=== PATIENT | female | born 1950 | race Caucasian/White ===

== ENCOUNTER 2024-05-13 00:41 | Emergency (ER) | payer MEDICARE, OTHER ==
[2024-05-13] MEDS ORDERED: HYDROcodone/Acetaminophen 10/325 mg Tablet ONE (01:25)
== END 2024-05-13 02:22 | disposition home or self-care (01) ==
LOC: ERS 00:41
DX: S22.42XA Multiple fractures of ribs, left side, initial encounter for closed fracture (principal); W22.8XXA Striking against or struck by other objects, initial encounter
CPT/HCPCS: 71250

== ENCOUNTER 2024-07-01 15:54 | Emergency (ER) | payer MEDICARE ==
[2024-07-01 16:32] LABS: #Basophils 0.05 10x3/uL (0.0-0.2); %Basophils 0.7 % (0.0-1.0); %Eosinophils 1.5 % (0.0-10.0); %Lymphocytes 20.8 % (21.0-51.0); %Monocytes 7.4 % (0.0-10.0); %Neutrophils 69.3 % (42.0-75.0); Hematocrit 39.8 % (36.0-47.0); Hemoglobin 13.2 g/dL (12.0-16.0); Mean Corpuscular HGB CONC 33.2 g/dL (32.0-36.0); Mean Corpuscular Hemoglobin 31.4 pg (27.0-31.0); Mean Corpuscular Volume 94.8 fL (78.0-98.0); Mean Platelet Volume 8.7 fL (7.4-10.4); Platelet Count 216 10x3/uL (130-400); RBC Distribution Width 11.9 % (11.5-14.5)
[2024-07-01 16:50] LABS: ALT (SGPT) 14 U/L (8-55); AST (SGOT) 16 U/L (5-34); Albumin 3.9 g/dL (3.4-4.8); Alkaline Phosphatase 68 U/L (40-110); Anion Gap 14 mmol/L (10-20); BUN (Urea Nitrogen) 14 mg/dL (9.8-20.1); Bilirubin, Total 0.5 mg/dL (0.2-1.2); Calc. Creatinine Clearance 0 mL/min (70-130); Calcium 8.9 mg/dL (7.8-10.44); Carbon Dioxide 26 mmol/L (23-31); Chloride 104 mmol/L (98-107); Estimated GFR 72; Globulin 2.8 g/dL (2.4-3.5); Glucose 95 mg/dL (83-110); Potassium 3.7 mmol/L (3.5-5.1); Protein, Total 6.7 g/dL (5.8-8.1); Sodium 140 mmol/L (136-145)
[2024-07-01 16:54] LABS: Troponin I Less than 0.010 ng/mL (< 0.028)
[2024-07-01] MEDS ORDERED: Ketorolac Tromethamine 30 MG (1 mL) VIAL ONE (18:57)
[2024-07-01] MEDS ORDERED: Lidocaine 4% Patch ONE (18:58)
== END 2024-07-01 19:48 | disposition home or self-care (01) ==
LOC: ERS 15:54
DX: S32.10XA Unspecified fracture of sacrum, initial encounter for closed fracture (principal); S22.42XD Multiple fractures of ribs, left side, subsequent encounter for fracture with routine healing; R29.700 NIHSS score 0; W18.30XA Fall on same level, unspecified, initial encounter; Y93.89 Activity, other specified
CPT/HCPCS: 71045; 71250; 74177; 80053; 84484; 85025; 93005; J1885; 36415; 96372

== ENCOUNTER 2024-07-13 14:43 | Emergency (ER) | payer MEDICARE ==
[2024-07-13 18:19] LABS: #Basophils 0.06 10x3/uL (0.0-0.2); %Basophils 0.6 % (0.0-1.0); %Eosinophils 0.9 % (0.0-10.0); %Lymphocytes 19.5 % (21.0-51.0); %Monocytes 6.9 % (0.0-10.0); %Neutrophils 71.7 % (42.0-75.0); Hematocrit 38.5 % (36.0-47.0); Mean Corpuscular HGB CONC 33.8 g/dL (32.0-36.0); Mean Corpuscular Hemoglobin 31.6 pg (27.0-31.0); Mean Corpuscular Volume 93.4 fL (78.0-98.0); Mean Platelet Volume 8.6 fL (7.4-10.4); Platelet Count 251 10x3/uL (130-400); RBC Distribution Width 12.5 % (11.5-14.5); Red Blood Cell (RBC) Count 4.12 mill/uL (4.20-5.40)
[2024-07-13 18:33] LABS: PTT 29.3 sec (22.9-36.1); Prothrombin Time 12.7 sec (12.0-14.7)
[2024-07-13] MEDS ORDERED: fentaNYL 50 mcg/mL 1 mL Vial ONE (19:26)
[2024-07-13] MEDS ORDERED: Ondansetron PF 4 MG/2 ML Vial ONE (19:28)
[2024-07-13 19:30] LABS: ALT (SGPT) 18 U/L (8-55); AST (SGOT) 20 U/L (5-34); Albumin 3.8 g/dL (3.4-4.8); Alkaline Phosphatase 116 U/L (40-110); Anion Gap 15 mmol/L (10-20); BUN (Urea Nitrogen) 13 mg/dL (9.8-20.1); Bilirubin, Total 0.5 mg/dL (0.2-1.2); Calc. Creatinine Clearance 0 mL/min (70-130); Calcium 9.1 mg/dL (7.8-10.44); Carbon Dioxide 24 mmol/L (23-31); Chloride 105 mmol/L (98-107); Estimated GFR 92; Glucose 75 mg/dL (83-110); Potassium 3.9 mmol/L (3.5-5.1); Protein, Total 6.8 g/dL (5.8-8.1); Sodium 140 mmol/L (136-145)
== END 2024-07-13 20:38 | disposition home or self-care (01) ==
LOC: ERS 14:43
DX: I82.441 Acute embolism and thrombosis of right tibial vein (principal)
CPT/HCPCS: 71275; 80053; 85025; 85610; 85730; 93971; 99284; J2405; J3010

== ENCOUNTER 2024-07-14 14:29 | Emergency (ER) | payer MEDICARE ==
[2024-07-14] MEDS ORDERED: Ketorolac Tromethamine 30 MG (1 mL) VIAL ONE (15:30)
[2024-07-14] MEDS ORDERED: HYDROcodone/Acetaminophen 5/325 mg Tablet ONE (15:30)
[2024-07-14] MEDS ORDERED: Ondansetron ODT 4 MG TAB ONE (16:24)
== END 2024-07-14 16:21 | disposition home or self-care (01) ==
LOC: ERS 14:29
DX: M25.551 Pain in right hip (principal); W18.30XA Fall on same level, unspecified, initial encounter
CPT/HCPCS: 72192; 96372; 99284; J1885; Q0162

== ENCOUNTER 2024-07-19 14:30 | Emergency (ER) | payer MEDICARE ==
[2024-07-19] MEDS ORDERED: HYDROcodone/Acetaminophen 5/325 mg Tablet ONE (15:54)
[2024-07-19] MEDS ORDERED: Ketorolac Tromethamine 30 MG (1 mL) VIAL ONE (16:39)
== END 2024-07-19 17:17 | disposition home or self-care (01) ==
LOC: ERS 14:30
DX: M53.3 Sacrococcygeal disorders, not elsewhere classified (principal)
CPT/HCPCS: 96372; 99282; J1885

== ENCOUNTER 2024-07-21 17:08 | Inpatient (IN) | payer MEDICARE ==
[2024-07-21 19:23] LABS: #Basophils 0.06 10x3/uL (0.0-0.2); %Basophils 0.6 % (0.0-1.0); %Eosinophils 0.8 % (0.0-10.0); %Monocytes 6.3 % (0.0-10.0); %Neutrophils 71.7 % (42.0-75.0); Hematocrit 40.7 % (36.0-47.0); Hemoglobin 13.6 g/dL (12.0-16.0); Mean Corpuscular HGB CONC 33.4 g/dL (32.0-36.0); Mean Corpuscular Hemoglobin 31.9 pg (27.0-31.0); Mean Corpuscular Volume 95.3 fL (78.0-98.0); Mean Platelet Volume 8.5 fL (7.4-10.4); Platelet Count 310 10x3/uL (130-400); RBC Distribution Width 13.2 % (11.5-14.5); Red Blood Cell (RBC) Count 4.27 mill/uL (4.20-5.40)
[2024-07-21] MEDS: fentaNYL 12 mcg Patch TD SCH (19:42)
[2024-07-21 19:50] LABS: ALT (SGPT) 19 U/L (8-55); AST (SGOT) 21 U/L (5-34); Albumin 3.9 g/dL (3.4-4.8); Alkaline Phosphatase 170 U/L (40-110); Anion Gap 17 mmol/L (10-20); BUN (Urea Nitrogen) 10 mg/dL (9.8-20.1); Bilirubin, Total 0.6 mg/dL (0.2-1.2); Calc. Creatinine Clearance 0 mL/min (70-130); Calcium 9.2 mg/dL (7.8-10.44); Carbon Dioxide 23 mmol/L (23-31); Chloride 104 mmol/L (98-107); Estimated GFR 94; Globulin 3.2 g/dL (2.4-3.5); Glucose 86 mg/dL (83-110); Potassium 3.5 mmol/L (3.5-5.1); Protein, Total 7.1 g/dL (5.8-8.1); Sodium 140 mmol/L (136-145)
[2024-07-21] MEDS ORDERED: Morphine 4 MG/ML VIAL ONE ×2 (20:35→21:19)
[2024-07-21 20:51] LABS: Bacteria/HPF None Seen HPF (None Seen); Bilirubin Negative (Negative); Blood, Urine Trace (Negative); CAUTI Indications for Culture Pelvic or flank pain; Clarity Clear (Clear); Glucose, Urine (Dipstick) Normal (Negative); Ketone, Urine 20 mg/dL (Negative); Leukocyte Negative Leu/uL (Negative); Nitrite Negative (Negative); Protein, Urine (Dipstick) Negative (Neg-Trace); Specific Gravity, Urine 1.019 (1.002-1.036); Squamous Epithelial None Seen HPF (0-3); WBC/HPF 0-3 HPF (0-3); pH, Urine 6.5 (5.0-9.0)
[2024-07-21 20:52] LABS: Urine Culture Reflex No No
[2024-07-21] MEDS ORDERED: Ondansetron PF 4 MG/2 ML Vial ONE (21:19)
[2024-07-21] MEDS ORDERED: hydrALAZINE 20 MG/ML VIAL SLOW IVP PRN (22:50)
[2024-07-21] MEDS ORDERED: Insulin Lispro 100 UNIT/ML 10 ML VIAL SC PRN (22:50)
[2024-07-21] MEDS ORDERED: Ondansetron PF 4 MG/2 ML Vial IVP PRN (22:50)
[2024-07-21] MEDS ORDERED: Dextrose 5% in Water 1,000 ML IV PRN (22:50)
[2024-07-21] MEDS ORDERED: Dextrose 50% Abboject 50 ML SYRINGE SLOW IVP PRN (22:50)
[2024-07-21] MEDS ORDERED: Morphine 4 MG/ML VIAL SLOW IVP PRN (22:50)
[2024-07-21] MEDS ORDERED: Glucagon 1 MG/ML KIT IM PRN (22:50)
[2024-07-22 02:23] VITALS: BMI 19.8
[2024-07-22 05:35] LABS: #Basophils Less than 0.03 10x3/uL (0.0-0.2); %Basophils 0.3 % (0.0-1.0); %Eosinophils 2.1 % (0.0-10.0); %Lymphocytes 30.4 % (21.0-51.0); %Monocytes 10.7 % (0.0-10.0); %Neutrophils 56.2 % (42.0-75.0); Hematocrit 36.2 % (36.0-47.0); Mean Corpuscular HGB CONC 33.1 g/dL (32.0-36.0); Mean Corpuscular Hemoglobin 31.7 pg (27.0-31.0); Mean Corpuscular Volume 95.8 fL (78.0-98.0); Mean Platelet Volume 8.7 fL (7.4-10.4); Platelet Count 275 10x3/uL (130-400); RBC Distribution Width 13.4 % (11.5-14.5); Red Blood Cell (RBC) Count 3.78 mill/uL (4.20-5.40)
[2024-07-22] MEDS ORDERED: traMADol HCl 50 MG TAB ONE (05:41)
[2024-07-22] MEDS: traMADol HCl 50 MG TAB PO PRN (05:46)
[2024-07-22 06:32] LABS: Anion Gap 15 mmol/L (10-20); BUN (Urea Nitrogen) 11 mg/dL (9.8-20.1); Calc. Creatinine Clearance 57 mL/min (70-130); Calcium 8.5 mg/dL (7.8-10.44); Carbon Dioxide 23 mmol/L (23-31); Chloride 106 mmol/L (98-107); Estimated GFR 91; Glucose 118 mg/dL (83-110); Potassium 3.6 mmol/L (3.5-5.1); Sodium 140 mmol/L (136-145)
[2024-07-22] MEDS: Acetaminophen 325 MG TAB PO PRN (09:27)
[2024-07-22] MEDS: Acetaminophen/Codeine 30-300mg Tablet PO PRN (18:30)
[2024-07-22] MEDS: Primidone 50 MG TAB PO SCH (21:02)
[2024-07-22] MEDS: OLANZapine 5 MG TAB PO SCH (21:02)
[2024-07-22] MEDS: Apixaban 5 MG TAB PO SCH (21:04)
[2024-07-22] MEDS: Gabapentin 300 MG CAP PO SCH (21:04)
[2024-07-22] MEDS: busPIRone HCl 10 MG TAB PO SCH (21:04)
[2024-07-22] MEDS: HYDROcodone/Acetaminophen 5/325 mg Tablet PO PRN (21:05)
[2024-07-23] MEDS ORDERED: Lorazepam 2 MG/ML VIAL SLOW IVP PRN (07:14)
[2024-07-23] MEDS: LAMOTRIGINE 300 MG PO SCH (07:56)
[2024-07-23] MEDS: LAMOTRIGINE 25 MG PO SCH (07:56)
[2024-07-23] MEDS: Primidone 50 MG TAB PO SCH (07:57)
[2024-07-23] MEDS: LAMOTRIGINE 50 MG PO SCH (07:57)
[2024-07-23] MEDS: Pantoprazole DR 40 MG TAB PO SCH (08:31)
[2024-07-23] MEDS ORDERED: DEUTETRABENAZINE 24 MG PO SCH (09:00)
[2024-07-23] MEDS ORDERED: LEVOMILNACIPRAN HCL 80 MG PO SCH (09:00)
[2024-07-24 10:46] VITALS: BMI 19.8
[2024-07-26] MEDS: Senokot S 8.6-50 MG TAB PO SCH ×2 (10:51→21:05)
[2024-07-26] MEDS: Pantoprazole DR 40 MG TAB PO SCH (21:04)
[2024-07-27 11:09] LABS: Anion Gap 15 mmol/L (10-20); BUN (Urea Nitrogen) 17 mg/dL (9.8-20.1); Calc. Creatinine Clearance 59 mL/min (70-130); Carbon Dioxide 25 mmol/L (23-31); Chloride 106 mmol/L (98-107); Estimated GFR 91; Glucose 190 mg/dL (83-110); Potassium 3.8 mmol/L (3.5-5.1); Sodium 142 mmol/L (136-145)
[2024-07-28 17:28] VITALS: BP 121/82; TEMP 98
== END 2024-07-28 20:20 | disposition critical access hospital (66) | DRG 552 ==
LOC: ERS 17:08 → ERHOLD 22:50 → SURG A 07-22 08:36
PROVIDERS: ADMIT Surgery; ATTEND Surgery
DX: S32.119A Unspecified Zone I fracture of sacrum, initial encounter for closed fracture (principal); S22.088A Other fracture of T11-T12 vertebra, initial encounter for closed fracture; S22.089A Unspecified fracture of T11-T12 vertebra, initial encounter for closed fracture; S22.49XA Multiple fractures of ribs, unspecified side, initial encounter for closed fracture; K21.9 Gastro-esophageal reflux disease without esophagitis; F32.A Depression, unspecified; I10 Essential (primary) hypertension; W19.XXXA Unspecified fall, initial encounter; F41.9 Anxiety disorder, unspecified; G40.909 Epilepsy, unspecified, not intractable, without status epilepticus; Z79.891 Long term (current) use of opiate analgesic; Z79.899 Other long term (current) drug therapy; Z86.718 Personal history of other venous thrombosis and embolism; Z79.01 Long term (current) use of anticoagulants
CPT/HCPCS: 36415; 36416; 51701; 70450; 72131; 72170; 80048; 80053; 81001; 85025; 93005; 93010; 96372; 96374; 96375; 96376; 97139; 99282; G0390; J1885; J2272; J2405

== ENCOUNTER 2024-09-27 12:22 | Emergency (ER) | payer MEDICARE ==
[2024-09-27 13:19] LABS: #Basophils 0.05 10x3/uL (0.0-0.2); %Basophils 0.6 % (0.0-1.0); %Eosinophils 0.5 % (0.0-10.0); %Lymphocytes 14.4 % (21.0-51.0); %Monocytes 4.9 % (0.0-10.0); %Neutrophils 79.4 % (42.0-75.0); Hemoglobin 12.8 g/dL (12.0-16.0); Mean Corpuscular HGB CONC 32.8 g/dL (32.0-36.0); Mean Corpuscular Hemoglobin 30.8 pg (27.0-31.0); Platelet Count 197 10x3/uL (130-400); RBC Distribution Width 11.8 % (11.5-14.5); Red Blood Cell (RBC) Count 4.15 mill/uL (4.20-5.40)
[2024-09-27 13:37] LABS: Troponin I Less than 0.010 ng/mL (< 0.028)
[2024-09-27 13:49] LABS: ALT (SGPT) 13 U/L (Less than 34); AST (SGOT) 35 U/L (11-34); Alkaline Phosphatase 87 U/L (40-110); Anion Gap 19 mmol/L (10-20); BUN (Urea Nitrogen) 8 mg/dL (9.8-20.1); Bilirubin, Total 0.6 mg/dL (0.3-1.2); Calc. Creatinine Clearance 0 mL/min (70-130); Calcium 9.4 mg/dL (7.8-10.44); Carbon Dioxide 22 mmol/L (23-31); Chloride 105 mmol/L (98-107); Estimated GFR 75; Globulin 3.2 g/dL (2.4-3.5); Glucose 83 mg/dL (83-110); Potassium 3.6 mmol/L (3.5-5.1); Protein, Total 7.2 g/dL (5.8-8.1); Sodium 142 mmol/L (136-145)
[2024-09-27 16:06] LABS: Lipase 20 U/L (8-78)
[2024-09-27 16:09] LABS: Acetaminophen Less than 10 mcg/mL (Less than 10); Alcohol Less than 10.0 mg/dL (Less than 10); Salicylate Less than 8.0 mg/dL (Less than 8.0)
[2024-09-27 16:18] LABS: Bacteria/HPF 1+ HPF (None Seen); Bilirubin Negative (Negative); Blood, Urine 1+ (Negative); CAUTI Indications for Culture Alt mental st,lethar; Clarity Turbid (Clear); Glucose, Urine (Dipstick) Normal (Negative); Ketone, Urine 80 mg/dL (Negative); Leukocyte 500 Leu/uL (Negative); Nitrite Negative (Negative); Protein, Urine (Dipstick) 20 mg/dL (Neg-Trace); Specific Gravity, Urine 1.019 (1.002-1.036); Squamous Epithelial 0-3 HPF (0-3); Urobilinogen Normal mg/dL (Less than 2); WBC/HPF Greater than 50 HPF (0-3)
[2024-09-27 16:19] LABS: Urine Culture Reflex Yes Yes
[2024-09-27 16:24] LABS: Amphetamine Not Detected (NotDetected); Barbiturates Screen Detected (NotDetected); Benzodiazepine Screen Not Detected (NotDetected); Cocaine Metabolite Screen Not Detected (NotDetected); Methadone Not Detected (NotDetected); Methamphetamine Not Detected (NotDetected); Opiate Screen Not Detected (NotDetected); Oxycodone Screen Not Detected (NotDetected); Phencyclidine (PCP) Not Detected (NotDetected); THC/Cannabinoid Screen Not Detected (NotDetected); Tricyclic Screen Not Detected (NotDetected)
[2024-09-27] MEDS ORDERED: Sodium Chloride 0.9% 100 ML ONE (16:38)
[2024-09-27] MEDS ORDERED: cefTRIAXone (ROCEPHIN) 1 GM VIAL ONE ×2 (16:38→16:49)
== END 2024-09-27 17:08 | disposition home or self-care (01) ==
LOC: ERS 12:22
DX: N39.0 Urinary tract infection, site not specified (principal); Z87.891 Personal history of nicotine dependence
CPT/HCPCS: 70450; 71045; 80306; 80307; 81001; 83690; 84484; 87077; 87086; 93005; 96374; 99285; J0696; 36415; 80053; 84443; 85025